=== PATIENT | female | born 1995 | race Caucasian/White ===

== ENCOUNTER 2016-04-18 20:40 | Emergency (ER) | payer MEDICAID ==
[2016-04-18 21:27] LABS: APPEARANCE CLEAR (CLEAR); BILIRUBIN NEGATIVE (NEGATIVE); COLOR YELLOW (YELLOW); GLUCOSE NEGATIVE (NEGATIVE); KETONE NEGATIVE (NEGATIVE); LEUKOCYTE ESTERASE NEGATIVE (NEGATIVE); NITRITE NEGATIVE (NEGATIVE); PROTEIN NEGATIVE (NEGATIVE); SPECIFIC GRAVITY 1.005 (1.005-1.020); UROBILINOGEN NORMAL (NORMAL)
[2016-04-18 21:29] LABS: HCG URINE NEGATIVE (NEGATIVE)
== END 2016-04-18 22:30 | disposition home or self-care (01) ==
LOC: D.ER 20:40
PROVIDERS: Emergency Medicine
DX: R35.0 Frequency of micturition (principal); M54.5 Low back pain; F41.9 Anxiety disorder, unspecified

== ENCOUNTER 2016-09-05 23:47 | Emergency (ER) | payer MEDICAID | END 2016-09-06 01:13 | disposition home or self-care (01) | LOC: D.ER 23:47 | DX: S00.83XA Contusion of other part of head, initial encounter (principal); X58.XXXA Exposure to other specified factors, initial encounter; Y93.61 Activity, american tackle football; Y92.89 Other specified places as the place of occurrence of the external cause ==